=== PATIENT | female | born 1950 | race Caucasian/White ===

== ENCOUNTER 2016-05-10 21:42 | Emergency (ER) | payer SELFPAY ==
[~2016-05-10] VITALS: Ht 170.2 cm; Wt 74.5 kg
[~2016-05-10 21:42] MED LIST: AMBIEN10 M1 PO; AMBIEN10 MG PO; BENADRYL25 MG PO; BENADRYL50 MG PO; BUPROPION HCL150 M2 PO; CLONIDINE HCL0.1 MG PO; DIPHENOXYLATE/1 EACH PO; ESTRADIOL1 MG PO; HALOPERIDOL2 MG PO; LITHIUM CARBON300 M2 PO; LITHIUM CARBON600 MG PO; LOMOTIL TABLET1 EACH PO; LOPRESSOR50 MG PO; METOPROLOL TART50 MG PO; OMEPRAZOLE20 MG PO; PERPHENAZINE16 MG PO; PRILOSEC40 MG PO; TRILAFON8 MG PO; ULTRAM50 MG PO; URELLE,DARPA1 TABLET PO; [UNRECOGNIZED DRUG - OTHER] PO; [UNRECOGNIZED DRUG - REMARK]
[2016-05-10 23:00] LABS: MCH 31.4 PG (29.0-34.0); MCHC 33.7 G/DL (30.0-36.0); MCV 93.2 FL (83-99); MEAN PLAT.VOLUME 9.7 uM^3 (9.5-12.4); PLATELET COUNT 173 K/uL (156-360); RBC DIS.WIDTH-CV 13.9 % (11.8-14.6); RBC DIS.WIDTH-SD 46.2 % (39-53); WHITE BLOOD COUNT 6.9 K/uL (4.1-10.2)
[2016-05-10 23:00] LABS: CHLORIDE 109 mEq/L (99-109); POTASSIUM 4.2 mEq/L (3.7-5.4); SODIUM 139 mEq/L (136-147)
[2016-05-10 23:02] LABS: GLUCOSE 91 mg/dL (70-99)
[2016-05-10 23:04] LABS: ANION GAP 10 MEQ/L (2-14)
[2016-05-10 23:05] LABS: SERUM ETHYL ALCOHOL 96 mg/dL
[2016-05-10 23:06] LABS: GFR ESTIMATE (CALCULATED) > 59 mL/min/
[2016-05-10 23:08] LABS: UREA NITROGEN (BUN) 10 mg/dL (9-23)
[2016-05-10 23:09] LABS: SALICYLATE < 5.0 MG/DL (15-30)
[2016-05-11 00:37] VITALS: BP 128/75
[2016-05-11 00:45] LABS: ADD MIUA? NO; BILIRUBIN NEGATIVE; BLOOD NEGATIVE; COLOR YELLOW ((YELLOW)); GLUCOSE (STRIP) NEGATIVE; KETONES NEGATIVE; LEUKOCYTES NEGATIVE; NITRITE NEGATIVE; PROTEIN (STRIP) NEGATIVE; SPECIFIC GRAVITY 1.014 (1.000-1.030); UCUL ADDED? NO; UROBILINOGEN 0.2 MG/DL (0.2-1.0)
[2016-05-11 01:02] LABS: AMPHETAMINE NEGATIVE (500 ng/mL); BARBITURATES NEGATIVE (200 ng/mL); BENZODIAZEPINES NEGATIVE (150 ng/mL); COCAINE NEGATIVE (150 ng/mL); INTERNAL CONTROLS VALID? YES; METHADONE NEGATIVE (200 ng/mL); METHAMPHETAMINE NEGATIVE (500 ng/mL); OPIATES (MORPHINE) NEGATIVE (100 ng/mL); OXYCODONE NEGATIVE (100 ng/mL); PHENCYCLIDINE NEGATIVE (25 ng/mL); PROPOXYPHENE NEGATIVE (300 ng/mL); THC CANNABINOIDS NEGATIVE (50 ng/mL); TRICYCLIC ANTIDEPRESSANTS NEGATIVE (300 ng/mL)
== END 2016-05-11 00:49 | disposition home or self-care (01) ==
LOC: EME 21:42
PROVIDERS: Emergency Medicine
DX: F10.220 Alcohol dependence with intoxication, uncomplicated (principal); F31.9 Bipolar disorder, unspecified; F32.9 Major depressive disorder, single episode, unspecified; F41.1 Generalized anxiety disorder; F25.0 Schizoaffective disorder, bipolar type; F17.200 Nicotine dependence, unspecified, uncomplicated; Z88.6 Allergy status to analgesic agent; Z88.0 Allergy status to penicillin
CPT/HCPCS: 80048; 81003; 85027; 90837; 99281; 99284; G0480

== ENCOUNTER 2016-07-27 20:08 | Inpatient (IN) | payer SELFPAY ==
[~2016-07-27] VITALS: Ht 170.2 cm; Wt 75.5 kg
[2016-07-27 21:03] LABS: HEMATOCRIT 44.9 % (36.0-46.0); MCH 30.6 PG (29.0-34.0); MCHC 33.6 G/DL (30.0-36.0); MCV 91.1 FL (83-99); MEAN PLAT.VOLUME 9.3 uM^3 (9.5-12.4); PLATELET COUNT 233 K/uL (156-360); RBC DIS.WIDTH-CV 13.3 % (11.8-14.6); RBC DIS.WIDTH-SD 45.1 % (39-53); RED BLOOD COUNT 4.93 M/uL (3.80-5.20); WHITE BLOOD COUNT 11.6 K/uL (4.1-10.2)
[2016-07-27 21:18] LABS: CHLORIDE 102 mEq/L (99-109); POTASSIUM 3.9 mEq/L (3.7-5.4); SODIUM 136 mEq/L (136-147)
[2016-07-27 21:20] LABS: GLUCOSE 85 mg/dL (70-99)
[2016-07-27 21:21] LABS: ANION GAP 12 MEQ/L (2-14)
[2016-07-27 21:24] LABS: GFR ESTIMATE (CALCULATED) > 59 mL/min/; UREA NITROGEN (BUN) 10 mg/dL (9-23)
[2016-07-28 00:50] LABS: TOTAL BILIRUBIN 0.2 mg/dL (0.0-1.0)
[2016-07-28 00:51] LABS: ALKALINE PHOSPHATASE 75 IU/L (3-129)
[2016-07-28 00:54] LABS: DIRECT BILIRUBIN 0.1 mg/dL (0.0-0.3)
[2016-07-28 00:55] LABS: LIPASE 4 U/L (1.0-51.0)
[2016-07-28 01:00] LABS: TROP-I INTERPRETATION NEGATIVE; TROPONIN-I < 0.01 ng/mL (0.0-0.30)
[2016-07-28] MEDS ORDERED: HALOPERIDOL1 MG PO (01:39)
[2016-07-28] MEDS ORDERED: ESTRADIOL2 MG PO (01:40)
[2016-07-28] MEDS ORDERED: AMLODIPINE BES2.5 MG PO (01:41)
[2016-07-28] MEDS ORDERED: TERBINAFINE HC250 MG PO (01:41)
[2016-07-28] MEDS ORDERED: VITAMIN D2000 UNI1 PO (01:41)
[2016-07-28 02:50] VITALS: BP 152/84
[2016-07-28 03:00] LABS: TOTAL CHOLESTEROL 195 mg/dL (Desirable<200)
[2016-07-28 04:51] LABS: ADD MIUA? YES; BILIRUBIN NEGATIVE; BLOOD SMALL; COLOR YELLOW ((YELLOW)); GLUCOSE (STRIP) NEGATIVE; KETONES NEGATIVE; LEUKOCYTES NEGATIVE; NITRITE NEGATIVE; PROTEIN (STRIP) NEGATIVE; SPECIFIC GRAVITY 1.006 (1.000-1.030); UROBILINOGEN 0.2 MG/DL (0.2-1.0)
[2016-07-28 04:57] LABS: BACTERIA NONE SEEN /HPF; EPITHELIAL CELLS RARE /HPF; MUCUS NONE SEEN /LPF; RED BLOOD CELLS NONE SEEN /HPF (0-5); UCUL ADDED? NO; WHITE BLOOD CELLS 0-5 /HPF (0-5)
[2016-07-28 05:13] LABS: AMPHETAMINES QUANT VALUE 0 NG/ML; BARBITUATES QUANT VALUE 0 NG/ML; BENZODIAZEPINES QUANT VALUE 0 NG/ML; BENZODIAZEPINES, URINE SCREEN Negative (200 ng/mL); MARIJUANA QUANT VALUE 0 NG/ML; OPIATES QUANTITATIVE VALUE 0 NG/ML; PHENCYCLIDINE QUANT VALUE 0 NG/ML
[2016-07-28 05:45] LABS: HDL CHOLESTEROL 62 MG/DL (Desirable>=50); LDL CHOLESTEROL 70 mg/dL (Desirable<100); MAGNESIUM 1.6 mg/dl (1.3-2.7); NON-HDL CHOLESTEROL 93 mg/dL (Desirable<160); TOTAL CHOLESTEROL 155 mg/dL (Desirable<200); TRIGLYCERIDES 113 MG/DL (Normal: <150)
[2016-07-28 06:00] VITALS: BP 129/72
[2016-07-28 06:47] LABS: SERUM ETHYL ALCOHOL < 10 mg/dL
[2016-07-28 07:30] LABS: Estimated Average Glucose 111 mg/dL (70-123); HEMOGLOBIN A1c (GLYCOHEMOGLOB) 5.5 % HGB (Below 5.7)
[2016-07-28 08:25] VITALS: BP 130/82
[2016-07-28 12:02] VITALS: BP 140/79
[2016-07-28 17:48] VITALS: BP 135/65
[2016-07-28 19:40] VITALS: BP 140/72
[2016-07-29 00:59] VITALS: BP 143/77
[2016-07-29 04:49] VITALS: BP 136/81
[2016-07-29 07:23] LABS: EOSINOPHIL COUNT 0.2 K/uL (0-0.3); HEMATOCRIT 41.9 % (36.0-46.0); IMMATURE GRANULOCYTE (%) 0.5 % (0.0-0.7); INSTRUMENT ABS NEUTROPHIL CT 3.9 K/uL; LYMPHOCYTE COUNT 1.4 K/uL (1.0-2.8); MCH 30.6 PG (29.0-34.0); MCHC 32.7 G/DL (30.0-36.0); MCV 93.5 FL (83-99); MEAN PLAT.VOLUME 9.7 uM^3 (9.5-12.4); MONOCYTE (%) 8.9 % (3-12); MONOCYTE COUNT 0.5 K/uL (0-0.8); NEUTROPHIL (%) 64.6 % (45-76); NEUTROPHIL COUNT 3.9 K/uL (1.8-6.4); PLATELET COUNT 181 K/uL (156-360); RBC DIS.WIDTH-CV 13.5 % (11.8-14.6); RBC DIS.WIDTH-SD 46.3 % (39-53); RED BLOOD COUNT 4.48 M/uL (3.80-5.20)
[2016-07-29 07:32] LABS: ALKALINE PHOSPHATASE 60 IU/L (3-129); ANION GAP 5 MEQ/L (2-14); CHLORIDE 110 MEQ/L (99-109); GFR ESTIMATE (CALCULATED) > 59 mL/min/; GLUCOSE 98 mg/dL (70-99); MAGNESIUM 1.7 mg/dl (1.3-2.7); POTASSIUM 4.4 MEQ/L (3.7-5.4); SAMPLE HEMOLYSIS CHECK 0; SAMPLE ICTERIC CHECK 0; SAMPLE LIPEMIA CHECK 0; SODIUM 141 MEQ/L (136-147); TOTAL BILIRUBIN 0.3 MG/DL (0.0-1.0); UREA NITROGEN (BUN) 8 mg/dL (9-23)
[2016-07-29 12:00] VITALS: BP 144/77
[2016-07-29] MEDS ORDERED: AMLODIPINE BESYL5 MG PO (15:03)
== END 2016-07-29 16:00 | disposition home or self-care (01) | DRG 309 ==
LOC: EME 20:08 → EDOF 07-28 01:31 → 5WEST 07-28 02:40
PROVIDERS: Emergency Medicine; Internal Medicine; Physician Assistant Medical
DX: I45.5 Other specified heart block (principal); T44.7X5A Adverse effect of beta-adrenoreceptor antagonists, initial encounter; I10 Essential (primary) hypertension; I49.8 Other specified cardiac arrhythmias; R20.2 Paresthesia of skin; F10.20 Alcohol dependence, uncomplicated; B35.1 Tinea unguium; K52.1 Toxic gastroenteritis and colitis; T37.95XA Adverse effect of unspecified systemic anti-infective and antiparasitic, initial encounter; F17.200 Nicotine dependence, unspecified, uncomplicated; F14.20 Cocaine dependence, uncomplicated; Z91.5 Personal history of self-harm; F41.0 Panic disorder [episodic paroxysmal anxiety]; F25.9 Schizoaffective disorder, unspecified; F31.9 Bipolar disorder, unspecified; K21.9 Gastro-esophageal reflux disease without esophagitis; K25.9 Gastric ulcer, unspecified as acute or chronic, without hemorrhage or perforation; M19.90 Unspecified osteoarthritis, unspecified site; Z71.6 Tobacco abuse counseling
CPT/HCPCS: 70450; 70551; 71020; 80048; 80053; 80061; 80076; 80306 90; 81003; 82465; 82607; 83036; 83690; 83735; 83880; 84484; 85025; 85027; 87493; 93005; 99281; 99285; G0480; J1650; J3411; J7030

== ENCOUNTER 2017-07-22 04:27 | Emergency (ER) | payer SELFPAY ==
[~2017-07-22] VITALS: Ht 170.2 cm; Wt 59.1 kg
[~2017-07-22 04:27] MED LIST changes: +AMLODIPINE BES2.5 MG PO; +AMLODIPINE BESYL5 MG PO; +ESTRADIOL2 MG PO; +HALOPERIDOL1 MG PO; +TERBINAFINE HC250 MG PO; +VITAMIN D2000 UNI1 PO
[2017-07-22] MEDS ORDERED: PERCOCET 5/31 TABLET PO (05:28)
[2017-07-22] MEDS ORDERED: MOTRIN600 MG PO (05:28)
[2017-07-22 05:49] VITALS: BP 153/95
== END 2017-07-22 05:50 | disposition home or self-care (01) ==
LOC: EME → EDBD 04:27 → EME 05:50
DX: S42.201A Unspecified fracture of upper end of right humerus, initial encounter for closed fracture (principal); Y04.8XXA Assault by other bodily force, initial encounter; F17.200 Nicotine dependence, unspecified, uncomplicated
CPT/HCPCS: 73060; 99281; 99283

== ENCOUNTER 2017-07-24 13:26 | Emergency (ER) | payer SELFPAY ==
[~2017-07-24] VITALS: Ht 170.2 cm; Wt 62.6 kg
[~2017-07-24 13:26] MED LIST changes: +MOTRIN600 MG PO; +PERCOCET 5/31 TABLET PO
[2017-07-24 15:56] VITALS: BP 163/91
== END 2017-07-24 16:17 | disposition home or self-care (01) ==
LOC: EME 13:26
DX: K08.89 Other specified disorders of teeth and supporting structures (principal); K13.79 Other lesions of oral mucosa; I10 Essential (primary) hypertension; F17.200 Nicotine dependence, unspecified, uncomplicated; Z88.8 Allergy status to other drugs, medicaments and biological substances; Z88.5 Allergy status to narcotic agent; Z88.0 Allergy status to penicillin
CPT/HCPCS: 99281; 99283